=== PATIENT | male | born 1975 | race Caucasian/White ===

== ENCOUNTER 2019-11-26 12:32 | Emergency (ER) | payer OTHER ==
[~2019-11-26] VITALS: Ht 180.3 cm; Wt 97.9 kg
--- NOTE | 2019-11-26 13:20 | REP ---
Clinical: Trauma. Technique: AP, lateral, bilateral oblique views of the left hand. Findings: There is an angulated displaced fracture through the distal aspect of the fifth metacarpal bone with overlying soft tissue swelling and subcutaneous emphysema. Impression: Fracture involving the distal aspect of the fifth metacarpal bone. Electronically Signed by Hank Leger MD 11/26/2019 01:12 P
[2019-11-26] MEDS ORDERED: BOOSTRIX/ADACEL VACCINE (DIPHTH/PERTUSS/ACELL/TETANUS) 0.5ML SYR IM ONE (13:30)
[2019-11-26] MEDS ORDERED: KEFL500C17 PO (14:10)
[2019-11-26] MEDS ORDERED: ceFAZolin SOD 1 GM in D5W MINI-BAG PLUS 50 ML IV ONE (14:15)
[2019-11-26 14:51] VITALS: BP 123/67
== END 2019-11-26 14:52 | disposition home or self-care (01) ==
LOC: M ED 12:32
DX: S62.307A Unspecified fracture of fifth metacarpal bone, left hand, initial encounter for closed fracture (principal); X58.XXXA Exposure to other specified factors, initial encounter; Y92.018 Other place in single-family (private) house as the place of occurrence of the external cause
CPT/HCPCS: 29125; 73130; 90471; 90715; 96365; 99284; J0690